=== PATIENT | male | born 1990 | race Caucasian/White ===

== ENCOUNTER 2020-01-24 11:20 | Inpatient (IN) | payer SELFPAY ==
[2020-01-24 11:24] VITALS: BP 141/99; PULSE 94; RESP 14; TEMP 36.8; O2SAT 99; BMI 26.6
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
[2020-01-24 11:52] LABS: Basophils # 0.1 10^3/uL (0.0-0.1); Basophils % 0.8 %; Eosinophils # 0.1 10^3/uL (0.0-0.8); Eosinophils % 1.4 %; Hematocrit 41.6 % (42.0-52.0); Hemoglobin 13.7 g/dL (11.7-16.6); Lymphocytes # 3.2 10^3/uL (0.8-4.8); Lymphocytes % 37.1 %; Mean Corpuscular HGB Conc 32.9 g/dL (30.0-36.0); Mean Corpuscular Volume 87.9 fL (80-94); Mean Platelet Volume 7.9 fL (7.4-10.4); Monocytes # 0.6 10^3/uL (0.2-0.9); Monocytes % 6.3 %; Neutrophils # 4.73 10^3/uL (1.8-7.7); Neutrophils % 54.2 %; Nucleated Red Blood Cells % 0 %; Platelet Count 509 10^3/cmm (130-400); Red Blood Count 4.73 10^6/uL (4.1-5.3); Red Cell Distribution Width 13.5 % (12.1-15.1); White Blood Count 8.7 10^3/uL (4.0-10.0)
[2020-01-24] MEDS: LORazepam 1 mg Tablet PO (11:56)
[2020-01-24 12:08] LABS: Alanine Aminotransferase 18 U/L (0-41); Albumin Level 5.5 g/dL (3.5-5.2); Alcohol Level 197 mg/dL (0-10); Alkaline Phosphatase 58 IU/L (40-130); Anion Gap 16.1 (5-19); Aspartate Amino Transferase 19 U/L (0-40); Blood Urea Nitrogen 12 mg/dL (6-20); Calcium 9.2 mg/dL (8.5-10.5); Carbon Dioxide 25 mmol/L (22-29); Chloride 100 mmol/L (98-107); Globulin 2.2 g/dL (1.3-4.6); Glomerular Filtration Rate 114.3 mL/min (90-130); Glucose 102 mg/dL (65-115); Osmolality Calculated 280 mOsm/kg (285-295); Potassium 4.1 mmol/L (3.5-5.1); Sodium 137 mmol/L (136-145); Total Bilirubin 0.3 mg/dL (0.15-1.2); Total Protein 7.7 g/dL (6.6-8.7)
[2020-01-24 12:16] LABS: Amphetamines Screen Urine Positive (Negative); Barbiturates Screen Urine Negative (Negative); Benzodiazepines Screen Urine Negative (Negative); Cocaine Screen Urine Negative (Negative); Opiate Screen Urine Negative (Negative); PCP Screen Urine Negative (Negative); THC Screen Urine Positive (Negative)
[2020-01-24 12:17] LABS: Acetaminophen < 5.0 ug/mL (10-30); Salicylate < 0.3 mg/dL (3-10)
--- NOTE | 2020-01-24 12:33 | PC.NURSE ---
Patient is calm and resting in bed. 1:1 sitter at bedside.
--- NOTE | 2020-01-24 12:59 | PC.NURSE ---
Patient calm, but withdrawn. Patient resting in bed. 1:1 sitter at bedside.
[2020-01-24 13:21] VITALS: BP 163/79; PULSE 86; RESP 16; O2SAT 98
[2020-01-24 13:45] VITALS: BP 163/79; PULSE 86; RESP 16; TEMP 36.8; O2SAT 98
[2020-01-24 13:50] VITALS: BP 163/79; PULSE 86; RESP 16; TEMP 36.8; O2SAT 98
[2020-01-24 15:04] VITALS: BP 145/96; PULSE 95; RESP 18; TEMP 37.1; O2SAT 100
[2020-01-24] MEDS: OLANZapine 5 mg ODT PO (18:43)
--- NOTE | 2020-01-24 18:44 | PC.NURSE ---
PRN zyorexa Zydis 5MG PO given for anxiety
--- NOTE | 2020-01-24 18:45 | PC.NURSE ---
PT NOTE: PATIENT GIVEN PRN ZYPREXA ZYDIS 5MG PO FOR ANXIETY.
[2020-01-24 20:30] VITALS: BP 131/89; PULSE 97; RESP 22; TEMP 36.8; O2SAT 97
[2020-01-24] MEDS: trazodone 50 mg Tablet PO (21:16)
[2020-01-24] MEDS: hyDROXYzine 25 mg Capsule 50 MG PO (21:16)
--- NOTE | 2020-01-25 04:20 | PC.NURSE ---
pt given PRN trazodone and vistaril at HS per request. no behavior issues noted.
[2020-01-25 06:00] VITALS: BP 132/82; PULSE 70; RESP 20; TEMP 36.9; O2SAT 97
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
[2020-01-25] MEDS: OLANZapine 5 mg ODT PO ×2 (11:40→18:49)
--- NOTE | 2020-01-25 11:40 | PC.NURSE ---
Addendum entered by Cherri Soriano LPN 01/25/20 12:46: MEDICATION EFFECTIVE. NO FURTHER C/O AGITATION/ANXIETY. Original Note: PRN ZYPREXA ZYDIS ZYPREXA ZYDIS 5MG PO PER PATIENT C/O AGITATION/ANXIETY. WILL CONTINUE TO MONITOR FOR MEDICATION EFFECTIVENESS.
[2020-01-25 14:00] VITALS: BP 118/83; PULSE 96; RESP 18; TEMP 36.7; O2SAT 93
[2020-01-25] MEDS: buPROPion SR (12 HR) 150 mg Tablet PO (14:20)
[2020-01-25] MEDS: acetaminophen 325 mg Tablet 650 MG PO (18:47)
--- NOTE | 2020-01-25 18:50 | PC.NURSE ---
PRN ZYPREXA ZYDIS ZYPREXA ZYDIS 5MG PO PER PATIENT C/O ANXIETY/AGITATION. WILL CONTINUE TO MONITOR FOR MEDICATION EFFECTIVENESS.
[2020-01-25 20:26] VITALS: BP 124/82; PULSE 76; RESP 18; TEMP 36.6; O2SAT 97
[2020-01-25] MEDS: trazodone 50 mg Tablet PO (20:30)
[2020-01-25] MEDS: hyDROXYzine 25 mg Capsule 50 MG PO (20:30)
--- NOTE | 2020-01-25 21:39 | PC.NURSE ---
pt given PRN trazodone and vistaril per request.
[2020-01-25 22:00] VITALS: BP 124/82; PULSE 76; RESP 18; TEMP 36.6; O2SAT 97
[2020-01-26 06:00] VITALS: BP 125/77; PULSE 63; RESP 13; TEMP 36.9; O2SAT 97
[2020-01-26] MEDS: buPROPion XL (24 HR) 150 mg Tablet PO (09:28)
[2020-01-26] MEDS: acetaminophen 325 mg Tablet 650 MG PO ×2 (09:28→18:57)
[2020-01-26] MEDS: hyDROXYzine 25 mg Capsule 50 MG PO ×2 (09:28→21:25)
[2020-01-26] MEDS: OLANZapine 5 mg ODT PO ×2 (11:58→21:25)
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
[2020-01-26 14:00] VITALS: BP 121/85; PULSE 77; RESP 18; TEMP 36.9
[2020-01-26 22:00] VITALS: BP 138/83; PULSE 101; RESP 18; TEMP 36.7; O2SAT 96
--- NOTE | 2020-01-27 01:05 | PC.NURSE ---
pt given PRN zyprexa and vistaril per request.
[2020-01-27 06:00] VITALS: BP 125/78; PULSE 85; RESP 16; TEMP 36.8; O2SAT 98
[2020-01-27] MEDS: hyDROXYzine 25 mg Capsule 50 MG PO ×3 (07:22→21:04)
[2020-01-27] MEDS: buPROPion XL (24 HR) 150 mg Tablet PO (09:03)
[2020-01-27] MEDS: OLANZapine 5 mg ODT PO ×2 (09:03→21:04)
--- NOTE | 2020-01-27 10:14 | PM.NPN ---
Subjective NPU Subjective: Interval history: Edilberto presented today with lots of questions about COVID-19, which we discussed at length. He reported that he was having some jitteriness/restless-leg, which he doesn?t know if it was from the Wellbutrin or he possibly had a PRN of Vistaril. So, we agreed to look into what might be causing that. He reports that he is feeling a lot better, from the standpoint of his mood, and is not feeling suicidal, and is feeling optimistic about going back and taking care of things that are being neglected right now. We discussed the possibility of at least considering discharge, in the next forty eight hours, after we have a chance to make sure for certain that the gun has been managed, and that there are no additional concerns from anyone in his [place]. Otherwise, he reports that he is feeling good on the medication and eating better. His sleep has been a little tough because of the restless leg syndrome. Mental Status Exam MSE Comments: This is a well-nourished, well-developed, white male, with glez hair way beyond his years, with adequate dress, grooming, and eye contact. No abnormal movements, except for resolving psychomotor retardation. Cooperative with exam in no acute distress. Speech was More normal rate and volume. Mood described as a getting better; affect congruent. Thought process, organized. Thought content: Patient denies suicidal or homicidal ideation; there were no delusions reported or noted; patient denied any auditory or visual hallucinations. Attention, concentration, and memory appear intact but none were formally tested. He is alert and oriented times three. Insight and judgment are fair and improving. Vitals/I&O/Wt Last Vital Signs Temp 98.2 F 01/27/20 06:00 Pulse 85 01/27/20 06:00 Resp 16 01/27/20 06:00 BP 125/78 01/27/20 06:00 Pulse Ox 98 01/27/20 06:00 Weight last 48 hrs Weight 87.146 kg Data NPU : 01/24/20 11:47 01/24/20 11:47 A&P Additional A&P Information (1) Suicidal ideation: (2) Homicidal ideation: (3) Depression: This is a 29 year old, white male, with a history of trauma and a long history of mental health issues with significant genetic loading for both mental health and addiction issues, with a recent member of his inner [place] that committed suicide in July of this year, and he has been struggling ever since, and was found with a loaded gun, reporting suicidal and homicidal thoughts showing improvement on Wellbutrin XL. Continue current medication, except: Start ibuprofen 800 mg every 8 for his dental abscess. Continue q-15 minute checks for safety. Encourage individual, group, and milieu therapy. Work with social work team to make sure that he has a very adept therapist after discharge. Consider discharge in the next 48 hours. Involuntary Hold Information 96 Hour Hold: 96 Hour Involuntary Admission: Yes 96 Hour Hold Ending Date: 01/30/20 96 Hour Hold Ending Time: 12:45 Attestations NPU Medical Necessity Statement*: Inpatient hospitalization is medically necessary and the clinically appropriate intervention at this time. We will monitor medications and make adjustments as indicated. Likely length of stay is 1-3 days Coding Level of Care Code Acute Hat Conditioner for Sulma Atkinson
[2020-01-27 14:00] VITALS: BP 142/89; PULSE 96; RESP 18; TEMP 36.9
[2020-01-27 20:39] VITALS: BP 143/79; PULSE 92; RESP 20; TEMP 36.4; O2SAT 99
[2020-01-27] MEDS: acetaminophen 325 mg Tablet 650 MG PO (20:59)
[2020-01-28 06:00] VITALS: BP 119/82; PULSE 102; RESP 21; TEMP 36.6; O2SAT 99
[2020-01-28] MEDS: buPROPion XL (24 HR) 150 mg Tablet PO (08:27)
[2020-01-28] MEDS: OLANZapine 5 mg ODT PO (09:37)
--- NOTE | 2020-01-28 09:37 | PC.NURSE ---
PRN ZYPREXA ZYDIS ZYPREXA ZYDIS 5MG PO PER PATIENT C/O AGITATION/ANXIETY. WILL CONTINUE TO MONITOR FOR MEDICATION EFFECTIVENESS.
--- NOTE | 2020-01-28 10:30 | PC.NURSE ---
PRN ZYPREXA ZYDIS FOLLOW UP MEDICATION EFFECTIVE. NO FURTHER C/O ANXIETY.
[2020-01-28 14:00] VITALS: BP 119/82; PULSE 102; RESP 21; TEMP 36.6; O2SAT 99
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
[2020-01-28 15:34] VITALS: BP 119/82; PULSE 102; RESP 21; TEMP 36.6; O2SAT 99
== END 2020-01-28 16:40 | disposition home or self-care (01) | DRG 880 ==
LOC: ER 12:59 → NP 13:11
PROVIDERS: Admitting Provider Psychiatry & Neurology Psychiatry; Emergency Provider Physician Assistant; Visit Provider Psychiatry & Neurology Psychiatry
DX: F41.8 Other specified anxiety disorders (principal); R45.851 Suicidal ideations; R45.850 Homicidal ideations
CPT/HCPCS: 12345; 80053; 80306; 80307; 85025; 99284

== ENCOUNTER → 2020-09-13 11:50 | Outpatient (BNVA) | payer SELFPAY | DX: S69.91XA Unspecified injury of right wrist, hand and finger(s), initial encounter (principal); W23.0XXA Caught, crushed, jammed, or pinched between moving objects, initial encounter | CPT/HCPCS: 73130 ==

== ENCOUNTER → 2020-09-29 08:42 | Outpatient (BNVA) | payer SELFPAY | PROVIDERS: Referring Provider Nurse Practitioner Family; Visit Provider Specialist | DX: S67.22XA Crushing injury of left hand, initial encounter (principal); X58.XXXA Exposure to other specified factors, initial encounter | CPT/HCPCS: 73130 ==

== ENCOUNTER 2020-09-29 11:51 | Outpatient (CLI) | payer SELFPAY | END 2020-09-29 11:52 | disposition home or self-care (01) | LOC: SPT 11:52 | PROVIDERS: Visit Provider Specialist | DX: Z46.89 Encounter for fitting and adjustment of other specified devices (principal); S67.21XD Crushing injury of right hand, subsequent encounter; X58.XXXD Exposure to other specified factors, subsequent encounter | CPT/HCPCS: 97760; L3807 ==

== ENCOUNTER 2020-10-09 15:02 | Outpatient (CLI) | payer SELFPAY ==
--- NOTE | 2020-10-09 15:15 | MR_ITS ---
WS: [id number] INDICATION: Right hand pain and trauma TECHNIQUE: MR of the right hand without gadolinium enhancement. Coronal T1 STIR axial T2 axial T1 and sagittal T2, coronal 3-D FSPGR imaging FINDINGS: Area of interest marked with a palpable marker. This overlies the second CMC articulation.. Small tyree unt of associated edema in the underlying trapezoid and base of the second metacarpal. Small amount o f edema along the dorsal surface of the adjacent capitate. Edema along the dorsal intercarpal ligamen t. Edema and tenosynovitis along the extensor carpi radialis brevis and extensor carpi radialis longu s tendons. Diffuse increased signal involving the extensor carpi radialis longus consistent with part ial tear or tendinosis. Normal flexor compartment tendons and carpal tunnel. Cystic degenerative changes involving the proxim al and distal carpal row advanced for patient this age. Degenerative or posttraumatic edema involving the hamate distally at the CMC articulation with adjace nt edema in the base of the fifth metacarpal. Recommend correlation for pain and trauma in this area. No displaced fractures. Scaphoid and lunate are normal in appearance. Degenerative arthritis the fir st CMC and STT. MR/MR hand RT wo con* [id number] IMPRESSION: 1. In the area of interest, there is underlying edema in the trapezoid and bas e of the second metacarpal likely due to contusion. Small amount of edema in th e adjacent capitate. Small amount of edema along the dorsal intercarpal ligamen t. 2. Tenosynovitis with edema involving the underlying extensor carpi radialis b scott and longus tendons. 3. Diffuse increased signal abnormality in the extensor carpi radialis longus deep to the palpable marker consistent with partial tear or tendinosis 4. Additional edema involving the dorsal hamate extending into the base of the fifth metacarpal. Recommend correlation for trauma and pain in this area. Find ings consistent with contusion versus degenerative change. 5. Degenerative arthritis first CMC and STT. Scaphoid and lunate appear normal . 6. Cystic degenerative changes involving the proximal and distal carpal row so mewhat advanced for patient this age.
== END 2020-10-09 15:03 | disposition home or self-care (01) ==
LOC: RADSHAW 15:04
PROVIDERS: PCP Nurse Practitioner Family; Visit Provider Specialist
DX: S67.21XA Crushing injury of right hand, initial encounter (principal); X58.XXXA Exposure to other specified factors, initial encounter; M19.041 Primary osteoarthritis, right hand; R60.0 Localized edema; M65.841 Other synovitis and tenosynovitis, right hand
CPT/HCPCS: 73218

== ENCOUNTER 2022-10-26 09:24 | Outpatient (CLI) | payer SELFPAY ==
--- NOTE | 2022-10-26 09:31 | XR_ITS ---
WS: [id number] Exam: XR lumbar spine 2-3V* [id number] Date/Time of Exam: 10/26/2022 9:53 AM Reason For Exam: low back pain with right lower leg pain, numb great toe righ No fracture or dislocation. Disc spaces are preserved. Posterior elements are intact. No scoliosis. XR/XR lumbar spine 2-3V* [id number] IMPRESSION: 1. Unremarkable lumbar spine series.
== END 2022-10-26 09:25 | disposition home or self-care (01) ==
LOC: RAD 09:31
PROVIDERS: PCP Clinical Nurse Specialist Adult Health; Visit Provider Clinical Nurse Specialist Adult Health
DX: M54.16 Radiculopathy, lumbar region (principal)
CPT/HCPCS: 72100

== ENCOUNTER 2024-12-26 11:36 | Emergency (ER) | payer SELFPAY ==
--- NOTE | 2024-12-26 11:41 | XR_ITS ---
WS: [id number] Exam: XR knee LT 3V* [id number] Date/Time of Exam: 12/26/2024 11:41 AM Reason For Exam: injury No fracture. The joints are preserved. No joint effusion or soft tissue abnormality. XR/XR knee LT 3V* [id number] IMPRESSION: 1. Negative LEFT knee.
[2024-12-26 11:53] VITALS: BP 149/101; PULSE 87; RESP 16; TEMP 37.2; O2SAT 98; BMI 28.7
--- NOTE | 2024-12-26 12:31 | W.ED.EXTPRO ---
HPI - Extremity Problem General: Chief complaint: Extremity Injury, Lower Stated complaint: left knee pain Time Seen by Provider: 12/26/24 12:26 Source: patient Mode of arrival: ambulatory Limitations: no limitations History of Present Illness: 34-year-old male states he stood up yesterday and his left knee buckled and gave out. States since then he has been having a hard time ambulating and pain in that left knee states had some swelling as well. States that pain is improved with rest worse with movement denies any other injuries. Associated symptoms: Deny chest pain, fever(s) or rash Related Data Previous Rx's ?Medication ?Instructions ?Recorded baclofen 20 mg tablet 20 mg PO BID muscle strain #14 tabs 11/19/24 naproxen 500 mg tablet 500 mg PO BID PRN pain #30 tabs 11/19/24 Allergies Allergy/AdvReac Type Severity Reaction Status Date / Time zolpidem (From Ambien) AdvReac Intermediate Unknown Verified 12/26/24 11:57 Review of Systems Const: Denies: fever(s), chills, body aches or change in appetite ENMT: Denies: throat pain or dental pain Card: Denies: chest pain Resp: Denies: dyspnea GI: Denies: abdominal pain, nausea, vomiting or diarrhea Musc: Reports: extremity pain; Denies: neck pain or back pain Skin/Breast: Denies: rash Neuro: Denies: headache(s) PFSH ED PFSH: Medical History Buttock sprain ADD (attention deficit disorder) Generalized anxiety disorder Major depression Surgical History Hx of tonsillectomy Hx of cholecystectomy Family History Other CAD (coronary artery disease) Cancer Diabetes Social History Smoking and tobacco/nicotine status: never used tobacco/nicotine Alcohol intake: never Substance/Drug Use: current Physical Exam Const: COMMON NORMALS: no acute distress, patient oriented x3 and healthy appearing HENMT: COMMON NORMALS: normocephalic and atraumatic HEAD & SCALP: normocephalic and atraumatic Eye: COMMON NORMALS: conjunctivae normal CONJUNCTIVA: Yes conjunctivae normal Neck/C-Spine: COMMON NORMALS: full ROM and supple Chest: COMMONS NORMALS: normal inspection of the chest Resp: COMMON NORMALS: normal respiratory effort Cardio: COMMON NORMALS: regular rate RATE: regular rate Extremity: COMMON NORMALS: full ROM NARRATIVE EXTREMITY EXAM: Tenderness swelling noted on left knee mainly on the medial aspect no warmth to touch has full range of motion Neuro: COMMON NORMALS: patient oriented x3, moves all extremities and no focal motor deficits Psych: COMMON NORMALS: mental status grossly normal, Normal thought process present and cooperative THOUGHT PROCESS: Normal thought process present Skin: COMMON NORMALS: no rashes or lesions noted and no wounds GENERAL SKIN EXAM: no rashes or lesions noted Course Vital Signs: Vital signs: Vital Signs Temperature 98.9 F 12/26/24 11:53 Pulse Rate 87 12/26/24 11:53 Respiratory Rate 16 12/26/24 11:53 Blood Pressure 149/101 12/26/24 11:53 Pulse Oximetry 98 12/26/24 11:53 Oxygen Delivery Me thod Room Air 12/26/24 11:53 MDM - Extremity (Nontraumatic) Medical Decision Making Patient presents here with a knee sprain x-ray shows no fractures we will place him in immobilizer weight-bear as tolerated we will get him crutches we will get him follow-up with orthopedics return if worsening. Medical Records I reviewed the patient's medical records. Lab Data Radiology Impressions Knee X-Ray 12/26/24 11:41 IMPRESSION: 1. Negative LEFT knee. All radiology interpretation(s) finalized by discharge Discharge Plan Discharge Patient Disposition: Home Clinical Impression: Left knee sprain Qualifiers: Encounter type: initial encounter Condition: Stable Prescriptions: No Action baclofen 20 mg tablet 20 mg PO BID Qty: 14 0RF naproxen 500 mg tablet 500 mg PO BID PRN (Reason: pain) Qty: 30 0RF Discharge Orders: Discharge ED (Routine); Ordered 12/26/24 Ordered By: Marlo Dover Referrals: Cosmo Lim NP [Primary Care Provider, Family Practice] Jose Alcaraz DO [Physician, Orthopedics] - 4-7 days Discharge Diet: Advance as tolerated Discharge Activity: Limit activity as instructed and Use walker/crutches as instructed Patient Instructions: Knee Sprain (ED), Knee Immobilizer (ED) Print Language: Mexican Coding Level of Care Code ED Suction Plate Carrier Cleaner for Sulma Atkinson
[2024-12-26] MEDS: HYDROcodone-acetaminophen 5-325 mg Tablet 1 TAB PO (12:37)
--- NOTE | 2024-12-27 08:26 | DCPLANNER ---
messaged ortho for er f/u
== END 2024-12-26 12:49 | disposition home or self-care (01) ==
PROVIDERS: Emergency Provider Emergency Medicine; PCP Clinical Nurse Specialist Adult Health
DX: S83.92XA Sprain of unspecified site of left knee, initial encounter (principal); W19.XXXA Unspecified fall, initial encounter
CPT/HCPCS: 29530; 73562; 99283; E0114; J9999; L1830

== ENCOUNTER → 2025-01-01 14:20 | Outpatient (BNVA) | payer SELFPAY | PROVIDERS: PCP Clinical Nurse Specialist Adult Health; Visit Provider Physician Assistant | DX: S83.92XA Sprain of unspecified site of left knee, initial encounter (principal); M23.302 Other meniscus derangements, unspecified lateral meniscus, unspecified knee; S89.92XA Unspecified injury of left lower leg, initial encounter; X50.1XXA Overexertion from prolonged static or awkward postures, initial encounter | CPT/HCPCS: 73560; 73565 ==

== ENCOUNTER 2025-03-18 07:18 | Outpatient (CLI) | payer SELFPAY ==
--- NOTE | 2025-03-18 07:15 | MR_ITS ---
WS: [id number] MRI LEFT KNEE NONCONTRAST TECHNIQUE: Axial PD, coronal PD fat sat, coronal PD, sagittal PD, and sagittal PD fat-sat images obtained. CLINICAL INFORMATION: derangement of left knee COMPARISON: None. FINDINGS: Distal quadriceps and patella tendons are intact. Hypertrophic patella. Moderate suprapatellar effusion. ACL and PCL appear intact. Lateral subluxation of the patella with a shallow trochlear groove. Recommend correlation for patellar instability. Medial and lateral patellar retinaculum appear intact. Mild to moderate chondromalacia patella. High-grade complex tear posterior horn lateral meniscus with suspected bucket- handle tear with flipped meniscus anteriorly. Suspected capsular detachment posterior horn lateral meniscus. Meniscal fragment along the intercondylar notch medial meniscus appears intact. Medial and lateral collateral ligaments appear intact. Small amount of edema along the LCL. Small ganglion cyst along the fibula head. Normal bone marrow signal in the femoral condyles and tibial plateau. MR/MR knee LT wo con* [id number] IMPRESSION: 1. Lateral subluxation of the patella with shallow trochlear groove. Recommend correlation for patellar instability and recurrent dislocation. 2. Moderate suprapatellar effusion. 3. Complex tear involving the lateral meniscus with suspected bucket-handle te ar and flipped meniscus anteriorly. Suspected capsular detachment of the clinical nurse occupational medicine ior horn. Meniscal fragment along the intercondylar notch 4. ACL and PCL appear intact. 5. Medial and lateral collateral ligaments appear intact. Small amount of radha a along the LCL. Outbridge grading: grade II: blister-like swelling/fraying of articular cartila ge extending to surface
== END 2025-03-18 07:19 | disposition home or self-care (01) ==
LOC: RAD 07:20
PROVIDERS: PCP Clinical Nurse Specialist Adult Health; Visit Provider Physician Assistant
DX: S83.252A Bucket-handle tear of lateral meniscus, current injury, left knee, initial encounter (principal); M23.304 Other meniscus derangements, unspecified medial meniscus, left knee; M25.462 Effusion, left knee
CPT/HCPCS: 73721

== ENCOUNTER 2025-04-18 06:52 | Day surgery (SDC) | payer SELFPAY ==
[2025-04-18] VITALS (11 sets, daily range): BP systolic 112–164; BP diastolic 68–102; PULSE 56–80; RESP 15–19; TEMP 36.2–37.4; O2SAT 98–100; BMI 28.7
--- NOTE | 2025-04-18 07:15 | W.PM.OPSUD ---
Surgery/Procedure H&P Update DATE OF PROCEDURE: April 18, 2025 DATE H&P PERFORMED: 04/10/25 H&P UPDATE INFORMATION: I have reviewed H&P completed within last 30 days, I have examined patient prior to procedure and No changes to prior documentation PREOP DIAGNOSIS: Left knee bucket-handle meniscus tear PRIMARY INDICATION FOR PROCEDURE: Left knee bucket-handle meniscus tear PLANNED PROCEDURE: Operation Date: 04/18/25 09:00 Proposed Procedures p Meniscectomy Arthroscopy Knee Arthroscopic Lateral Meniscectomy vs. Repair(Left) - Jose Alcaraz DO
[2025-04-18] MEDS: acetaminophen 1,000 MG/100 ML PIGGYBACK 400 MG IV (07:29)
--- NOTE | 2025-04-18 08:15 | ANES.PREANE2 ---
Pre-Anesthetic Assessment Height/Weight: Height 1.78 m Weight 90.718 kg Temp Pulse Resp BP Pulse Ox O2 Del Method 99.4 F 75 16 164/102 100 Room Air 04/18/25 07:13 04/18/25 07:13 04/18/25 07:13 04/18/25 07:28 04/18/25 07:13 04/18/25 07:14 Preop Diagnosis: Left knee bucket-handle meniscus tear Operation Date: 04/18/25 09:00 Proposed Procedures p Meniscectomy Arthroscopy Knee Arthroscopic Lateral Meniscectomy vs. Repair(Left) - Jose Alcaraz DO Familial anesthetic complications: None Was Beta Sebastian taken within 24 hours: N/A Was Clonidine taken within 24 hours: N/A Last intake: Intake Last Liquid Date 04/17/25 Last Liquid Time 23:00 Last Solid Date 04/17/25 Last Solid Time 18:00 Social No alcohol and No tobacco Exam alert, oriented x 3, clear to auscultation bilaterally and regular rate & rhythm Airway Comments: Comments: Front two teeth are weak Anesthetic Plan ASA status: 1 Anesthesia: General Risk of > 500 ml blood loss (7ml/kg in children): No Medications/Allergies Home Medications ?Medication ?Instructions ?Recorded ?Confirmed ?Last Taken ?Type left knee economy brace #1 ea 01/01/25 04/10/25 Unknown Rx acetaminophen 500 mg tablet 500 mg PO Q6H PRN Pain 04/17/25 04/17/25 04/17/25 History ibuprofen 200 mg tablet 200 mg PO Q6H PRN Pain 04/17/25 04/17/25 04/16/25 History Allergies Allergy/AdvReac Type Severity Reaction Status Date / Time zolpidem (From Ambien) AdvReac Intermediate Unknown Verified 04/18/25 07:04 Current Medications Generic Name Dose Route Start Last Admin Trade Name Freq PRN Reason Stop Dose Admin Sodium Chloride 1,000 mls @ 30 mls/hr 04/18/25 07:00 04/18/25 07:30 Sodium Chloride 0.9% IV 04/19/25 06:59 30 mls/hr .Q24H FELA Administration PFSH Anesthesia Medical History (Updated 04/10/25 @ 09:16 by Jose Alcaraz DO) ADD (attention deficit disorder) Generalized anxiety disorder Major depression Surgical History Hx of tonsillectomy Hx of cholecystectomy Family History Other CAD (coronary artery disease) Cancer Diabetes Social History Smoking and tobacco/nicotine status: never used tobacco/nicotine Alcohol intake: never Substance/Drug Use: current
[2025-04-18] MEDS: ceFAZolin 2,000 MG in sodium chloride 0.9% (plus) 50 ML 100 MG IV (09:03)
[2025-04-18] MEDS: lidocaine-epi 2% PF 1:200,000 20 mL SDV 40 ML XX (09:13)
--- NOTE | 2025-04-18 09:52 | P.OP_ITS ---
Operative Report Date of procedure: April 18, 2025 Surgeon: Jose Alcaraz DO Maintenance Planning Clerk: Edilberto Alcaraz PA-C: PA was necessary for assistance in this case with leg positioning assistance with arthroscopic instrumentation for partial lateral meniscectomy and loose body removal, as well as assistance in wound closure and dressing application. Procedure: Preoperative diagnosis: Left knee bucket-handle meniscus tear lateral Post-op diagnosis: Left?knee?lateral meniscus tear bucket-handle Left?knee?extensive synovitis Left?knee?loose body Left knee chondromalacia Procedure done: Left?knee?diagnostic and surgical arthroscopy partial lateral meniscectomy Left?knee?diagnostic and surgical arthroscopy with extensive synovectomy of the medial lateral and patellofemoral compartments Left?knee?diagnostic and surgical arthroscopy with lateral compartment chondroplasty Left knee diagnostic and surgical arthroscopy with loose body removal (greater than 1 cm) Surgeon: Jose Alcaraz DO Estimated blood loss: 5 mL Tourniquet: No tourniquet was used IV fluids: See anesthesia record Complications: None Findings: See operative report narrative Condition: stable Disposition: same day Brief History: Patient is a 34-year-old male with Left?knee?pain.? Patient has failed conservative treatment who has been worked up for Left??knee?pain in the outpatient setting. MRI findings consistent with tear of the lateral meniscus bucket-handle, talked in the office about treatment options patient would like to proceed with a Left?knee?diagnostic and surgical arthroscopy with partial lateral meniscectomy versus repair.? Patient understand the ins and outs of the procedure the risk benefits complication alternatives to treatment options.? Understanding risk of surgery they agree to proceed with surgical intervention.? Understanding this and patient agree to proceed with surgical intervention all questions answered. Procedure: Patient seen and evaluated in the preoperative holding area.? Consent was reviewed and signed with patient.? Correct extremity was then marked.? Patient seen evaluated Anesthesia Department once cleared for surgery patient was taken back to the operative suite.? Patient was transported onto the OR table in supine position.? All bony prominences well-padded patient was appropriate secured to the bed.? Once appropriately anesthetized a nonsterile tourniquet was applied to the Left thigh.? The Left lower extremity was then prepped and draped in?standard orthopedic fashion.? Final timeout performed.? Patient received appropriate preoperative antibiotics. Patient received local anesthetic of lidocaine with epinephrine into the joint as well as around the portal sites.? No tourniquet was inflated A?standard 2 portal vertical incision diagnostic and surgical arthroscopy of the Left?knee?was performed in?standard fashion.? Small stab incision made in the inferolateral portal introduced trocar and arthroscope into the suprapatellar pouch.? Suprapatellar pouch was subsequently visualized and found to have significant synovitis but no loose bodies.? Patient had noticeable significant inflamed infrapatellar fat pad and thickening hypertrophic within the patellofemoral compartment.? ?The medial gutter was free of loose bodies I then introduced the arthroscope into the medial compartment.? Within the medial compartment I then established my inferior medial working portal utilizing spinal needle outside in technique.? Once established I then visualized our articular cartilage of the medial compartment with a valgus stress.? Patient was found to have grade 1 chondromalacia throughout the medial compartment.? Next I inspected the meniscus.? Arthroscopic probe was used to inspect the entirety of the meniscus which was intact including the meniscus root there is no evidence of any loosening articular cartilage and as a result this completed medial compartment work. Next a introduced the arthroscope to the intercondylar notch.? PCL and ACL were intact. patient had significant thickening of the infrapatellar fat pad spanning into the medial and lateral compartments.? I then performed an extensive synovectomy with the arthroscopic shaver of the patellofemoral medial and lateral compartments as well as the intercondylar notch. It was noted that there was a flipped bucket-handle meniscus tear of the lateral meniscus within the intercondylar notch adjacent to the ACL. Also within the intercondylar notch was a large loose body which was then removed with an arthroscopic tissue grasper and removed to its entirety. Next I introduced the arthroscope into the lateral compartment the lateral compartment was found to have grade1- 2 chondromalacia.? Once again patient was found to have a bucket-handle meniscus tear I then subsequently utilized an arthroscopic probe to flip this back into the lateral compartment unfortunately patient had a severe complex and in the tearing pattern of the lateral meniscus. Patient did have an intact meniscal root but then subsequently had a significant longitudinal component along the posterior horn with also a horizontal component into this region and then a radial tear component that extended to the popliteal hiatus. This wrapped all the way around to a longitudinal tear anteriorly. As a result this was not able to be repaired and as a result I performed a partial lateral meniscectomy removing the entirety of the bucket-handle tear. Unfortunately this included roughly 50 to 60% of the meniscus particularly of the body to the posterior horn. This was removed with a basket forceps as well as arthroscopic shaver and then subsequently annealed the partial lateral meniscectomy with a thermal wand to complete the partial lateral meniscectomy. This was all taken to stable meniscal tissue. At this point in time there was some small areas of grade II chondromalacia which subsequently performed a lateral compartment chondroplasty to stable articular tissue with a shaver and thermal wand. This completed my work of the lateral compartment and then performed a synovectomy of the lateral compartment.? Next of the arthroscope was placed into the lateral gutter and this was free of loose bodies.? Finally I reintroduced the arthroscope into the patellofemoral compartment.? The patellofemoral was found to have grade 1 chondromalacia of the patellofemoral compartment.? At this point I utilized arthroscopic shaver as well as thermal wand to perform extensive synovectomy of the patellofemoral compartment. This completed my work of the patellofemoral space.? I then switch my portal sites to the medial working portal.? Completed the rest of my synovectomy and the rest of my examination arthroscopy was normal. All fluid was suctioned from the joint.? ?All instruments were withdrawn.? Portal sites were closed with interrupted nylon suture.? portal sites were then covered with with Xeroform 4 x 4's ABD Curlex and Nikko wrap.? Patient was then subsequently awakened from anesthesia and taken to PACU in stable condition. Disposition: Patient taken to PACU in stable condition recovering well.? Will receive appropriate discharge structure as well as pain medication postoperatively as well as? DVT prophylaxis.we will have patient follow-up with us in the office in 2 weeks.? We will weightbearing as tolerated to the Left lower extremity with crutches as needed, patient understands and agrees with current plan.? All questions answered.
--- NOTE | 2025-04-18 10:01 | P.BOP_ITS ---
Date of Procedure: [April 18, 2025] Surgeon: [Dr. Alcaraz DO] Collateral Analyst(s): [Edilberto Alcaraz PA-C] Procedure(s) performed: [Left knee arthroscopy Partial lateral meniscectomy Loose body removal Lateral joint compartment chondroplasty Extensive synovectomy] Findings of the procedure(s): [Left knee partial lateral meniscus tear, loose body, extensive synovitis and grade 1lateral, medial and patella femoral chondromalacia. Procedure went well and is planned] Estimated blood loss: [5 mL] Specimen(s) removed: [Loose body removal] Post-operative diagnosis: [Left knee partial lateral meniscus tear, loose body, extensive synovitis and grade 1 lateral, medial and patella femoral chondromalacia]
--- NOTE | 2025-04-18 10:05 | PM.PACU ---
PACU note Narrative: Patient is a 34-year-old male that just underwent a left knee arthroscopy. Pt transferred to PACU in stable condition. Dressing is dry. pt is awake and alert. pt can wiggle toes and plantarflex and dorsiflex foot. pt able to perform straight leg raise, Femoral nerve intact. Distal pulses are palpable toes are warm and well-perfused. Cap refill is normal and under 2 seconds. Sensation to foot is intact. Pain is controlled. Exam: awake Disposition: discharged
[2025-04-18] MEDS: HYDROcodone-acetaminophen 5-325 mg Tablet 1 TAB PO (11:05)
--- NOTE | 2025-04-18 11:30 | ANE.PACU2 ---
Inpatient post-anesthesia follow up: Airway intact: Yes Vital signs: Temperature 98 F Pulse Rate 78 Respiratory Rate 17 Blood Pressure 146/93 Pulse Oximetry 100 Oxygen Delivery Me thod Room Air Oxygen Flow Rate Fraction of Inspir ed Oxygen Hydration adequate: Yes Nausea and vomiting: No Pain level: 1 Mental status: Baseline
== END 2025-04-18 11:35 | disposition home or self-care (01) ==
PROVIDERS: PCP Clinical Nurse Specialist Adult Health; Visit Provider Student in an Organized Health Care Education/Training Program
PROC: (CPT 29876; principal; 2025-04-18 09:00)
PROC: (CPT 29876; 2025-04-18 09:00)
PROC: (CPT 29876; 2025-04-18 09:00)
DX: S83.252A Bucket-handle tear of lateral meniscus, current injury, left knee, initial encounter (principal); X58.XXXA Exposure to other specified factors, initial encounter; M65.962 Unspecified synovitis and tenosynovitis, left lower leg; M23.42 Loose body in knee, left knee; M94.262 Chondromalacia, left knee; F32.9 Major depressive disorder, single episode, unspecified
CPT/HCPCS: 29876; 29881; J0131; J0690; J1100; J1885; J2250; J2405; J2704; J3010; J7030; J9999